=== PATIENT | female | born 1965 | race Hispanic/Latino ===

== ENCOUNTER → 2020-05-26 | Outpatient (CLI) | payer OTHER | END | disposition home or self-care (01) | LOC: SHCH 12:39 | PROVIDERS: ATTEND Internal Medicine Cardiovascular Disease | DX: I65.22 Occlusion and stenosis of left carotid artery (principal); E78.5 Hyperlipidemia, unspecified; E03.9 Hypothyroidism, unspecified; I10 Essential (primary) hypertension | CPT/HCPCS: 93306; 93356; 93880 ==

== ENCOUNTER → 2020-05-27 | Outpatient (CLI) | payer OTHER ==
[~2020-05-27] MED LIST: AEC81 PO; ATOR40TA71 PO; DULO30CA52 PO; INSU3INS9 SQ; LEVO25TA85 PO; LISI-617 PO; METF-446 PO; PIOG15TA66 PO; REGADENOSON 0.4 MG/5 ML PF SYG IVP SCH
== END | disposition home or self-care (01) ==
LOC: SHCH 07:59 → EDUNIT# 08:20
PROVIDERS: ATTEND Internal Medicine Cardiovascular Disease
DX: I10 Essential (primary) hypertension (principal)
CPT/HCPCS: 78452; 93017; A9500 ×2; J2785; 96374

== ENCOUNTER 2020-06-15 05:57 | Inpatient (IN) | payer OTHER ==
[2020-06-11 11:18] LABS: BASOPHILS % (AUTO) 0.3 % (0.0-5.0); EOSINOPHILS % (AUTO) 1.6 % (0.0-8.0); HEMATOCRIT 35.8 % (36-48); LYMPHOCYTES % (AUTO) 27.5 % (21.0-51.0); MEAN CORPUSCULAR HEMOGLOBIN 27.2 pg (27.0-33.0); MEAN CORPUSCULAR HGB CONC 31.3 g/dL (32.0-36.0); MEAN CORPUSCULAR VOLUME 86.9 fL (79-99); MONOCYTES % (AUTO) 7.7 % (3.0-13.0); NEUTROPHILS % (AUTO) 62.6 % (40.0-77.0); PLATELET COUNT (AUTO) 325 K/uL (130-400); RED BLOOD CELL COUNT(AUTO) 4.12 MIL/uL (4.00-5.50); RED CELL DISTRIBUTION WIDTH 13.8 % (11.0-15.5); WHITE BLOOD COUNT (AUTO) 7.6 K/uL (4.8-10.8)
[2020-06-11 11:19] LABS: APPEARANCE,URINE Clear (CLEAR); BILIRUBIN,URINE Negative (NEGATIVE); COLOR,URINE Yellow (YELLOW); GLUCOSE, URINE (UA) Negative (NEGATIVE); KETONES,URINE Negative (NEGATIVE); LEUKOCYTE ESTERASE ,URINE Trace (NEGATIVE); NITRATE,URINE Negative (NEGATIVE); OCCULT BLOOD,URINE Small (NEGATIVE); PROTEIN,URINE Trace mg/dL (NEGATIVE); UROBILINOGEN,URINE 0.2 mg/dL (0.2-1.0)
[2020-06-11 11:30] LABS: CREATININE 0.6 mg/dL (0.5-1.5)
[2020-06-11 11:40] LABS: BACTERIA,URINE Rare /HPF (None Seen); RBC,URINE 0-1 /HPF (0-1); WBC,URINE 0-1 /HPF (0-1)
[2020-06-11 11:50] LABS: INR 0.91 (0.85-1.15); PARTIAL THROMBOPLASTIN TIME 26.1 SEC (26.3-35.5); PROTHROMBIN TIME 9.9 SEC (9.6-11.6)
[2020-06-14 10:55] VITALS: BP 160/66
[~2020-06-15] VITALS: Ht 154.9 cm; Wt 77.1 kg
[2020-06-15] VITALS (19 sets, daily range): BP systolic 94–144; BP diastolic 50–84
[~2020-06-15 05:57] MED LIST changes: -AEC81 PO; -ATOR40TA71 PO; -DULO30CA52 PO; -INSU3INS9 SQ; -LEVO25TA85 PO; -LISI-617 PO; -METF-446 PO; -PIOG15TA66 PO; -REGADENOSON 0.4 MG/5 ML PF SYG IVP SCH; +SODIUM CHLORIDE 0.9% 500ML 500 ML IV SCH
[2020-06-15] MEDS ORDERED: SODIUM CHLORIDE 0.9% 1000ML 1,000 ML IV ONE (06:12)
[2020-06-15] MEDS ORDERED: HEPARIN SODIUM 1000UNIT/ML 10ML VIAL ONE (07:14)
[2020-06-15] MEDS ORDERED: LIDOCAINE HCL 2% 20ML ONE (07:14)
[2020-06-15] MEDS ORDERED: IOHEXOL 350 MG/ML 100ML INFUS..BTL IV ONE ×2 (07:14→08:36)
[2020-06-15] MEDS ORDERED: IOHEXOL-350 50ML VIAL IV ONE (07:14)
[2020-06-15] MEDS ORDERED: PIOG15TA66 PO (07:23)
[2020-06-15] MEDS ORDERED: INSU3INS9 SQ (07:26)
[2020-06-15] MEDS ORDERED: METF-446 PO (07:26)
[2020-06-15] MEDS ORDERED: LISI-617 PO (07:26)
[2020-06-15] MEDS ORDERED: ATOR40TA71 PO ×2 (07:26)
[2020-06-15] MEDS ORDERED: DULO30CA52 PO (07:28)
[2020-06-15] MEDS ORDERED: LEVO25TA85 PO (07:28)
[2020-06-15] MEDS ORDERED: AEC81 PO (07:28)
[2020-06-15] MEDS ORDERED: NITROGLYCERIN 4.1 GM SPRAY TL ONE (07:42)
[2020-06-15] MEDS ORDERED: IOHEXOL-350 75 ML VIAL IV ONE (07:50)
[2020-06-15] MEDS ORDERED: LABETALOL HCL 5 MG/ML 20ML VIAL IV ONE (08:37)
[2020-06-15] MEDS ORDERED: ONDANSETRON HCL 4 MG/2 ML VIAL IVP SCH (09:00)
[2020-06-15] MEDS ORDERED: LABETALOL HCL 5 MG/ML 20ML VIAL IV PRN (09:00)
[2020-06-15] MEDS ORDERED: ONDANSETRON HCL 4 MG/2 ML VIAL IVP PRN (09:00)
[2020-06-15] MEDS ORDERED: MORPHINE SULFATE 5 MG/ML VIAL IVP SCH (09:00)
[2020-06-15] MEDS: METOPROLOL TARTRATE 25 MG TAB PO SCH ×2 (10:42→22:28)
--- NOTE | 2020-06-15 12:27 | NUR ---
OPP, NEW TO [facility], WILL REVIEW AND FOLLOW UP , IF NO TRIGGERS OR CONCERNS, WILL DEFER DETAILED CM ASSESSMENT Addendum: 06/15/20 at 1228 by SHANNON HENDRICKS RN CM Amended: Links added.
[2020-06-15] MEDS ORDERED: DULOXETINE HCL 30 MG CAP ONE (13:00)
[2020-06-15] MEDS: DULOXETINE HCL 30 MG CAP PO SCH ×2 (13:43→22:28)
--- NOTE | 2020-06-15 15:15 | NUR ---
SHEATH REMOVAL @ 1445 PT INFORMED 6 FR ARTERIAL SHEATH FROM RT FEMORAL TO BE REMOVED. V/S PER V/S SPREADSHEET. RT FEMORAL SITE CLEANSED W/CHLORAPREP. @ 1450 ARTERIAL SHEATH REMOVED. CATHETER TIP INTACT. NO RESISTANCE @ WITHDRAWAL. MANUAL PRESSURE APPLIED X 20 MIN. NO BLEEDING, NO HEMATOMA. GAUZE & OPSITE APPLIED. (+) BILATERAL PEDAL PULSES. BLE PINK & WARM TO TOUCH. PT INFORMED TO MAINTAIN BEDREST X 8 HRS. REPORT GIVEN TO PRIMARY NURSE MYRTLE.
[2020-06-15] MEDS: METFORMIN HCL 500 MG TABLET PO SCH ×3 (16:10→22:28)
[2020-06-15] MEDS ORDERED: METFORMIN HCL 500 MG TABLET PO SCH (16:15)
--- NOTE | 2020-06-15 20:00 | NUR ---
PATIENT DENIED ANY CHEST PAIN NOR SHORTNESS OF BREATHING. PT DENIED ANY PAIN COMPLAINTS. PATIENT ALERT ORIENTED X 4. PULSES STRONG BILATERAL RADIAL AND BILATERAL DORSALIS PEDIS STRONG. MAINTAINED BED REST UNTIL 2300. PATIENT ACKNOWLEDGED. CLOSE MONITORING.
[2020-06-15] MEDS ORDERED: LIRAGLUTIDE SQ SCH (21:00)
[2020-06-15] MEDS ORDERED: DULOXETINE HCL 30 MG CAP PO SCH (21:00)
[2020-06-15] MEDS ORDERED: [UNRECOGNIZED DRUG - OTHER] SQ SCH (21:00)
[2020-06-15] MEDS ORDERED: NON-FORMULARY MEDICATION 1 EACH (Metformin HCl 1,000 MG) PO SCH (21:00)
[2020-06-15] MEDS ORDERED: INSULIN DEGLUDEC SQ SCH (21:00)
[2020-06-15] MEDS: RANOLAZINE 500 MG TAB.SR.12H PO SCH (22:28)
[2020-06-15] MEDS: ATORVASTATIN CALCIUM 40 MG TABLET PO SCH (22:30)
[2020-06-16 00:12] VITALS: BP 132/66
[2020-06-16 04:11] VITALS: BP 135/69
[2020-06-16] MEDS: LEVOTHYROXINE 25 MCG TABLET PO SCH (06:30)
[2020-06-16 07:30] VITALS: BP 129/69
[2020-06-16] MEDS: METOPROLOL TARTRATE 25 MG TAB PO SCH ×2 (08:52→19:35)
[2020-06-16] MEDS: DULOXETINE HCL 30 MG CAP PO SCH ×2 (08:52→19:34)
[2020-06-16] MEDS: ASPIRIN 81 MG EC TAB PO SCH (08:52)
[2020-06-16] MEDS: METFORMIN HCL 500 MG TABLET PO SCH (08:52)
[2020-06-16] MEDS: RANOLAZINE 500 MG TAB.SR.12H PO SCH ×2 (08:52→19:34)
[2020-06-16] MEDS ORDERED: LISINOPRIL 5 MG TABLET PO SCH (09:00)
[2020-06-16 09:10] LABS: CREATININE 0.7 mg/dL (0.5-1.5)
[2020-06-16 09:16] LABS: POTASSIUM 6.1 mmol/L (3.5-5.1)
[2020-06-16] MEDS: PIOGLITAZONE HCL 15 MG TAB PO SCH (09:28)
[2020-06-16] MEDS ORDERED: PHARMACY COMMUNICATION MISC SCH (09:45)
[2020-06-16] MEDS ORDERED: SODIUM ZIRCONIUM CYCLOSILICATE 10 GM POWD.PACK PO NR (10:00)
[2020-06-16 11:00] VITALS: BP 138/64
[2020-06-16] MEDS ORDERED: ACETAMINOPHEN 325 MG TAB ONE (11:11)
[2020-06-16] MEDS ORDERED: ACETAMINOPHEN 325 MG TAB PO SCH (11:30)
[2020-06-16] MEDS ORDERED: SODIUM POLYSTYRENE SULFONATE 15 GM/60 ML ML RC SCH ×2 (15:00→15:15)
[2020-06-16] MEDS ORDERED: SODIUM POLYSTYRENE SULFONATE 15 GM/60 ML ML ONE (15:01)
[2020-06-16] MEDS: SODIUM CHLORIDE 0.9% 1000ML 1,000 ML IV SCH ×2 (15:09→19:36)
[2020-06-16] MEDS ORDERED: ALBUTEROL SULFATE 0.083% 2.5 MG/3 ML INH IH PRN (15:45)
[2020-06-16] MEDS ORDERED: ALBUTEROL SULFATE 0.083% 2.5 MG/3 ML INH IH ONE (15:45)
[2020-06-16] MEDS: ATORVASTATIN CALCIUM 40 MG TABLET PO SCH (19:35)
[2020-06-16 19:49] VITALS: BP 130/68
[2020-06-16] MEDS ORDERED: DEXTROSE 50%-WATER 50 ML DISP.SYRIN IV PRN (20:45)
[2020-06-16] MEDS ORDERED: SODIUM BICARB 8.4% 50ML SYRINGE IVP SCH (20:45)
[2020-06-16] MEDS ORDERED: GLUCAGON 1MG KIT 1 MG ML IM PRN (20:45)
[2020-06-16] MEDS ORDERED: INSULIN HUMULIN R 100 UNIT/ML 3ML SQ SCH (20:45)
[2020-06-16] MEDS ORDERED: DEXTROSE 50%-WATER 50 ML DISP.SYRIN IV SCH (20:45)
[2020-06-16] MEDS ORDERED: CALCIUM GLUCONATE 1 GM in SODIUM CHLORIDE 0.9% 100 ML IV SCH (20:45)
[2020-06-16] MEDS ORDERED: LIRAGLUTIDE SQ SCH (21:00)
[2020-06-16] MEDS ORDERED: INSULIN DEGLUDEC SQ SCH (21:00)
[2020-06-16] MEDS ORDERED: SODIUM BICARB 50MEQ 50ML VIAL 50 ML ONE (21:36)
[2020-06-16] MEDS: INSULIN HUMULIN R 100 UNIT/ML 3ML SQ SCH (21:42)
[2020-06-16 23:51] VITALS: BP 95/47
[2020-06-17 04:23] VITALS: BP 90/44
[2020-06-17 05:25] LABS: HEMATOCRIT 30.2 % (36-48); MEAN CORPUSCULAR HEMOGLOBIN 27.7 pg (27.0-33.0); MEAN CORPUSCULAR HGB CONC 32.5 g/dL (32.0-36.0); MEAN CORPUSCULAR VOLUME 85.3 fL (79-99); RED BLOOD CELL COUNT(AUTO) 3.54 MIL/uL (4.00-5.50); RED CELL DISTRIBUTION WIDTH 13.4 % (11.0-15.5)
[2020-06-17 05:47] LABS: CREATININE 0.8 mg/dL (0.5-1.5); POTASSIUM 3.9 mmol/L (3.5-5.1)
[2020-06-17] MEDS: INSULIN HUMULIN R 100 UNIT/ML 3ML SQ SCH ×2 (05:54→11:45)
[2020-06-17] MEDS: SODIUM CHLORIDE 0.9% 1000ML 1,000 ML IV SCH ×2 (06:06→11:00)
[2020-06-17] MEDS: LEVOTHYROXINE 25 MCG TABLET PO SCH (06:06)
[2020-06-17 07:30] VITALS: BP 117/58
[2020-06-17] MEDS: RANOLAZINE 500 MG TAB.SR.12H PO SCH (07:53)
[2020-06-17] MEDS: DULOXETINE HCL 30 MG CAP PO SCH (07:53)
[2020-06-17] MEDS: METOPROLOL TARTRATE 25 MG TAB PO SCH (07:53)
[2020-06-17] MEDS: ASPIRIN 81 MG EC TAB PO SCH (07:53)
[2020-06-17] MEDS: PIOGLITAZONE HCL 15 MG TAB PO SCH (10:15)
[2020-06-17 11:00] VITALS: BP 98/54
--- NOTE | 2020-06-17 12:29 | NUR ---
DISCHARGE DISCHARGE INSTRUCTIONS GIVEN TO PATIENT. VERBALIZED UNDERSTANDING. FOLLOW UP APPOINTMENTS MADE FOR PCP AND DR LE. PRESCRIPTIONS GIVEN TO PATIENT BY DR LE. IV DISCONTINUED, TELEPAK REMOVED.
== END 2020-06-17 12:40 | disposition home or self-care (01) | DRG 287 ==
LOC: DAH 05:57 → OBSVTOIN 05:58 → DAHIP 05:58 → 4CH 09:42
PROVIDERS: ADMIT Internal Medicine Critical Care Medicine; ATTEND Internal Medicine Critical Care Medicine
PROC: 4A023N7 Measurement of Cardiac Sampling and Pressure, Left Heart, Percutaneous Approach (ICD-10-PCS; principal; 2020-06-15)
PROC: B2111ZZ Fluoroscopy of Multiple Coronary Arteries using Low Osmolar Contrast (ICD-10-PCS; 2020-06-15)
PROC: B2151ZZ Fluoroscopy of Left Heart using Low Osmolar Contrast (ICD-10-PCS; 2020-06-15)
PROC: 02JA3ZZ Inspection of Heart, Percutaneous Approach (ICD-10-PCS; 2020-06-15)
DX: I20.9 Angina pectoris, unspecified (principal); I10 Essential (primary) hypertension; E11.9 Type 2 diabetes mellitus without complications; E78.5 Hyperlipidemia, unspecified; E87.5 Hyperkalemia; Z79.4 Long term (current) use of insulin; Z79.82 Long term (current) use of aspirin; Z79.899 Other long term (current) drug therapy; Z79.890 Hormone replacement therapy; Z88.5 Allergy status to narcotic agent
CPT/HCPCS: 36415; 71045; 80048; 81001; 82948; 84132; 85025; 85027; 85610; 85730; 92920; 93005; 93458; 94664; A4606; C1769; C1887; C1894; G0378; J1644; J1815; J2405; J3490; J7030; J7070; Q9967

== ENCOUNTER → 2022-10-10 | Outpatient (CLI) | payer OTHER ==
[~2022-10-10] MED LIST changes: +AEC81 PO; +ATOR40TA71 PO; +DULO30CA52 PO; +INSU3INS9 SQ; +LEVO25TA85 PO; +PIOG15TA66 PO; -SODIUM CHLORIDE 0.9% 500ML 500 ML IV SCH
== END | disposition home or self-care (01) ==
LOC: SHCH 12:51
PROVIDERS: ATTEND Internal Medicine Cardiovascular Disease
DX: I70.293 Other atherosclerosis of native arteries of extremities, bilateral legs (principal)
CPT/HCPCS: 93925

== ENCOUNTER → 2022-10-23 | Outpatient (CLI) | payer OTHER | END | disposition home or self-care (01) | LOC: LAB 13:08 | PROVIDERS: ATTEND Internal Medicine Cardiovascular Disease | DX: I10 Essential (primary) hypertension (principal); M25.10 Fistula, unspecified joint; E78.5 Hyperlipidemia, unspecified; I73.9 Peripheral vascular disease, unspecified; I25.10 Atherosclerotic heart disease of native coronary artery without angina pectoris; E11.9 Type 2 diabetes mellitus without complications | CPT/HCPCS: 36415; 85651; 86431 ==